=== PATIENT | female | born 1955 | race Caucasian/White ===

== ENCOUNTER 2017-05-13 12:32 | Outpatient (CLI) | payer OTHER | END 2017-05-13 15:35 | disposition home or self-care (01) | LOC: MRI 12:32 | DX: M25.562 Pain in left knee (principal) | CPT/HCPCS: 73721 ==

== ENCOUNTER 2017-05-13 12:43 | Outpatient (CLI) | payer OTHER | END 2017-05-13 15:35 | disposition home or self-care (01) | LOC: RAD 12:43 | DX: M25.561 Pain in right knee (principal); M25.562 Pain in left knee ==

== ENCOUNTER 2017-06-16 05:55 | Day surgery (SDC) | payer OTHER ==
[~2017-06-16 05:55] MED LIST: ALLEGRA ALLERG180 MG PO; CENTRUM SILVER1 EAC5 PO; COLLAGEN PLUS1 EACH PO; COZAAR25 MG PO; CYMBALTA30 MG PO; FLECTOR1 EACH TD; GLUCOSAMINE-CH1 EAC9 PO; NEXIUM2.5 MG PO; OSTERA TABLET1 EACH PO; PROAIR RESPICL90 MCG IH; PROBIOTIC1 EAC5 PO; ROCALTROL0.25 MCG PO; ZANAFLEX2 M1 PO; ZINC LOZENGES1 EACH PO; ZOCOR20 MG PO; ZYZAL PO; [UNRECOGNIZED DRUG - OTHER] PO
[2017-06-16] MEDS ORDERED: NABUMETONE500 MG PO (10:45)
[2017-06-16] MEDS ORDERED: PERCOCET 5-3251 EACH PO (10:45)
== END 2017-06-16 11:20 | disposition home or self-care (01) ==
LOC: CIR.AMB 05:55
DX: M23.322 Other meniscus derangements, posterior horn of medial meniscus, left knee (principal); M17.12 Unilateral primary osteoarthritis, left knee; M94.262 Chondromalacia, left knee; M65.862 Other synovitis and tenosynovitis, left lower leg

== ENCOUNTER 2020-03-27 07:43 | Outpatient (CLI) | payer OTHER ==
[~2020-03-27 07:43] MED LIST changes: +NABUMETONE500 MG PO; +PERCOCET 5-3251 EACH PO
== END 2020-03-27 07:53 | disposition home or self-care (01) ==
LOC: NUCLEAR 07:43
PROVIDERS: ATTEND Internal Medicine Cardiovascular Disease
DX: I87.2 Venous insufficiency (chronic) (peripheral) (principal)

== ENCOUNTER 2023-08-07 07:16 | Outpatient (CLI) | payer OTHER | END 2023-08-07 07:17 | disposition home or self-care (01) | LOC: NUCLEAR 07:16 | PROVIDERS: ATTEND Internal Medicine Cardiovascular Disease | DX: I20.9 Angina pectoris, unspecified (principal) | CPT/HCPCS: 78452; 93017; A9500; J1250 ==